=== PATIENT | female | born 1950 | race Caucasian/White ===

== ENCOUNTER → 2022-04-13 | Outpatient (CLI) | payer BC, MEDICARE | END | disposition home or self-care (01) | LOC: RAH 09:53 | PROVIDERS: ATTEND Family Medicine | DX: R74.01 Elevation of levels of liver transaminase levels (principal) | CPT/HCPCS: 76700 ==

== ENCOUNTER → 2024-12-10 | Outpatient (CLI) | payer MEDICARE ==
--- NOTE | 2024-12-10 11:03 | HMCIMG ---
Exam Type: US ABDOMINAL COMPLETE Clinical Information: ABN RESULTS OF LFTS Comparison: None Findings: The liver shows normal echogenicity and is otherwise unremarkable. The liver measures less than 16 cm in length. Doppler evaluation shows patent portal and hepatic veins. The gallbladder shows cholelithiasis. No acute or chronic inflammatory changes are seen. The gallbladder wall thickness is 3 mm. No bile duct dilatation is noted. The common bile duct measures 5 mm. The right kidney measures 8 x 3.7 cm. The left kidney measures 9.5 x 4 cm. The kidneys are normal in size and echogenicity. No hydronephrosis or renal calculi are seen. There are no renal masses. The pancreas is unremarkable. The spleen is unremarkable. The aorta and inferior vena cava show no significant abnormalities. IMPRESSION: Cholelithiasis.
== END | disposition home or self-care (01) ==
LOC: RAH 08:32
PROVIDERS: ATTEND Family Medicine
DX: K80.20 Calculus of gallbladder without cholecystitis without obstruction (principal); R94.5 Abnormal results of liver function studies
CPT/HCPCS: 76700

== ENCOUNTER → 2025-05-21 | Outpatient (CLI) | payer MEDICARE ==
--- NOTE | 2025-05-22 08:16 | HMCSR ---
APPROVED REPORT EXAM: Two-dimensional and M-mode echocardiogram with Doppler and color Doppler. INDICATION ICD: I25.2 Old myocardial infarction 2D Dimensions RVDd4.0 cmLVEF(%)59.8 (>50%)LVED Vol(simp.)66.8 mL IVSd0.7 (0.7-1.1cm)FS(%)32 %LVES Vol(simp.)22.9 mL LVDd4.5 (3.8-5.6cm)LA (2D)3.5 (1.6-4.0cm)LVEF(%, simp.)66 % PWd0.9 (0.7-1.1cm)Ao Root(2D)2.5 (2.0-3.7cm)LA ESV INDEX (BP)18.91 mL/m2 LVDs3.1 (2.5-4.0cm)LVOT diam1.8 (1.8-2.4cm) IVC diam1.1 cm M-Mode Dimensions EPSS1.0 cm LA (MM)3.6 (1.6-4.0cm) Ao Root(MM)2.4 (2.0-3.7cm) Aortic Valve AoV Vmax1.5 m/Iesha Peak GR8.4 mmHgLVOT Vmax1.3 m/s AoV VTI0.3 mAo Mean GR4.1 mmHgLVOT VTI0.28 m JOSÉ MANUEL (VMAX)2.22 cm2AVA (VTI) 2.2 cm2 Mitral Valve MV E Vmax93.3 cm/sDECEL Iews571 ms MV A Vmax93.3 cm/sP 1/2 T90 ms E/A ratio1.0MVA (PHT)2.4 cm2 TDI E/E' Medial9.8E/E' Lateral7.7 Medial E' Peak V9.56 cm/sLateral E' Peak V12.07 cm/s Pulmonary Valve PV Vmax1.2 m/sPV VTI0.30 mPV Mean GR2.9 mmHg PV Peak GR5.5 mmHg Left Ventricle The left ventricle is normal size. There is normal LV segmental wall motion. There is normal left pam tricular wall thickness. LVEF is 60-65%. The left ventricular diastolic function is normal. Right Ventricle The right ventricle is upper limits normal in size. The right ventricular systolic function is normal . Atria The left atrium size is normal. The right atrium size is normal. Aortic Valve The aortic valve is normal in structure. No aortic regurgitation is present. There is no aortic valvu lar stenosis. Mitral Valve The mitral valve is normal in structure. There is no mitral valve regurgitation noted. There is no mi tral valve stenosis. Tricuspid Valve The tricuspid valve is normal in structure. There is no tricuspid valve regurgitation noted. Pulmonic Valve The pulmonary valve is not well visualized. There is no significant pulmonic valvular regurgitation. Great Vessels The aortic root is normal in size. The IVC is normal in size and collapses >50% with inspiration. Pericardium There is no pericardial effusion. Other Information Quality : AdequateRhythm : NSR Conclusion LVEF is 60-65%. The left ventricular diastolic function is normal. The right ventricle is upper limits normal in size. No significant valvular abnormalities
== END | disposition home or self-care (01) ==
LOC: RAH 13:44
PROVIDERS: ATTEND Family Medicine
DX: I25.2 Old myocardial infarction (principal)
CPT/HCPCS: 93306